=== PATIENT | male | born 1985 ===

== ENCOUNTER 2017-03-18 07:42 | Emergency (ER) | payer MEDICAID ==
[2017-03-18 07:49] VITALS: BP 122/82; PULSE 99; RESP 18; TEMP 97.3; O2SAT 98
--- NOTE | 2017-03-18 08:08 | C.PDOC ---
History Of Present Illness 31 y/o male presents to ED for evaluation of sore throat, bilateral ear pain, and right facial swelling since yesterday. Denies fever, runny nose, cough, shortness of breath, or other complaints. History obtained from mother, pt is non-verbal. Time Seen by Provider: 03/18/17 07:59 Chief Complaint (Nursing): Cough, Cold, Congestion History Per: Family (mother) History/Exam Limitations: no limitations Past Medical History Reviewed: Historical Data, Nursing Documentation, Vital Signs Vital Signs: Last Vital Signs Temp 97.3 F L 03/18/17 07:48 Pulse 99 H 03/18/17 07:48 Resp 18 03/18/17 07:48 BP 122/82 03/18/17 07:48 Pulse Ox 98 03/18/17 08:39 - Medical History PMH: Asthma Family History: States: Unknown Family Hx - Social History Hx Alcohol Use: No Hx Substance Use: No - Immunization History Hx Tetanus Toxoid Vaccination: Yes Hx Influenza Vaccination: Yes Hx Pneumococcal Vaccination: Yes Review Of Systems Except As Marked, All Systems Reviewed And Found Negative. Constitutional: Negative for: Fever, Chills ENT: Positive for: Ear Pain, Throat Pain, Other (right facial swelling). Negative for: Nose Discharge, Nose Congestion Respiratory: Negative for: Cough, Shortness of Breath Gastrointestinal: Negative for: Nausea, Vomiting, Abdominal Pain Physical Exam - Physical Exam Appears: Non-toxic, No Acute Distress Skin: Normal Color, Warm, Dry Head: Atraumatic, Normacephalic, No Swelling (no facial swelling) Eye(s): bilateral: Normal Inspection Ear(s): Bilateral: Normal Nose: Normal Oral Mucosa: Moist Tongue: Normal Appearing Lips: Normal Appearing Throat: Normal, No Erythema, No Exudate, No Drooling Neck: Normal ROM, Supple Cardiovascular: Rhythm Regular, No Murmur Respiratory: Normal Breath Sounds, No Rales, No Rhonchi, No Wheezing Gastrointestinal/Abdominal: Soft, No Tenderness Extremity: Normal ROM Neurological/Psych: Other (non-verbal) ED Course And Treatment O2 Sat by Pulse Oximetry: 98 Pulse Ox Interpretation: Normal Medical Decision Making Medical Decision Making: mentally retarded, mother @ bedside speaking for the pt normal ENT exam though h/o R facial swelling issues, no significant abnormality noted R face. flu swab neg opt f/u with PMD Disposition Doctor Will See Patient In The: Office Counseled Patient/Family Regarding: Studies Performed, Diagnosis - Disposition Referrals: Gilson Machuca [Medical Doctor] - Disposition: HOME/ ROUTINE Disposition Time: 08:08 Condition: GOOD Additional Instructions: Sigue Ibuprofeno o' Tylenol francia necessario para las molestias de la garganta. Sigue observando la jean-pierre del lado derechdo. Forms: General Discharge Instructions, [facility] (Jamaican), School Excuse Print Language: SERBIAN - Clinical Impression Clinical Impression: Sore throat - Scribe Statement The provider has reviewed the documentation as recorded by the Scribe Mauricio Hernandez All medical record entries made by the Elli[employer]ex were at my direction and personally dictated by me. I have reviewed the chart and agree that the record accurately reflects my personal performance of the history, physical exam, medical decision making, and the department course for this patient. I have also personally directed, reviewed, and agree with the discharge instructions and disposition.
== END 2017-03-18 08:22 | disposition home or self-care (01) ==
LOC: C.ER 07:42
DX: J02.9 Acute pharyngitis, unspecified (principal)